=== PATIENT | female | born 2000 | race Caucasian/White ===

== ENCOUNTER → 2020-10-05 09:18 | Outpatient (CLI) | payer OTHER, SELFPAY ==
[2020-10-05 10:26] LABS: Alanine Aminotransferase 13 IU/L (<35); Albumin 4.2 g/dL (3.5-5.0); Albumin Globulin Ratio 1.7 (1.0-2.8); Alkaline Phosphatase 54 U/L (38-126); Aspartate Aminotransferase 19 IU/L (14-36); BUN Creatinine Ratio 13.8 (6-22); Bilirubin Total 0.6 mg/dL (0.2-1.3); Blood Urea Nitrogen 9 mg/dL (7-17); Calcium 9.5 mg/dL (8.4-10.2); Carbon Dioxide 26 mmol/L (22-32); Chloride 104 mmol/L (98-107); Cholesterol 118 mg/dL (140-199); Estimated Glomerular Filt Rate > 60.0 mL/min (>60); Globulin 2.5 g/dL (1.7-4.1); Glucose 84 mg/dL (70-100); HDL Cholesterol 62 mg/dL (40-60); HEMOLYSIS < 15 (0-50); LDL Cholesterol Calculated 50 mg/dL (<100); Potassium 3.6 mmol/L (3.4-5.1); Sodium 139 mmol/L (137-145); Total Protein 6.7 g/dL (6.3-8.2); Triglycerides 29 mg/dL (35-150)
[2020-10-05 10:27] LABS: Add Manual Diff / Slide Review NO; Basophils Absolute Auto 0 /uL (0-100); Basophils Percent Auto 0.4 % (0-2); Eosinophils Absolute Auto 100 /uL (0-450); Eosinophils Percent Auto 1.1 % (2-4); Hemoglobin 12.3 g/dL (12.0-16.0); Lymphocytes Absolute Auto 2900 /uL (1100-4500); Mean Corpuscular HGB Conc 35.2 % (30-36); Mean Corpuscular Hemoglobin 31.3 PG (26-34); Mean Corpuscular Volume 89.1 fL (80-100); Monocytes Absolute Auto 600 /uL (0-900); Monocytes Percent Auto 6.7 % (3-14); Neutrophils Absolute Auto 4700 /uL (1500-7000); Neutrophils Percent Auto 56.8 % (50-75); Platelet Count 278 X10^3/uL (150-400); Red Blood Cell Count 3.93 X10^6/uL (4.0-5.2); Red Cell Distribution Width 12.9 % (11.6-14.8); White Blood Cell Count 8.3 X10^3/uL (4.5-11.0)
== END ==
PROVIDERS: PCP Registered Nurse; Referring Provider Registered Nurse; Visit Provider Registered Nurse
DX: Z00.00 Encounter for general adult medical examination without abnormal findings (principal); Z83.42 Family history of familial hypercholesterolemia; Z83.49 Family history of other endocrine, nutritional and metabolic diseases
CPT/HCPCS: 36415; 80053; 80061; 85025

== ENCOUNTER → 2020-11-12 11:56 | Outpatient (CLI) | payer OTHER, SELFPAY ==
[2020-11-12 14:08] LABS: Free T4, Direct Thyroxine 1.24 ng/dL (0.78-2.19)
== END ==
PROVIDERS: PCP Registered Nurse; Referring Provider Registered Nurse; Visit Provider Registered Nurse
DX: Z83.49 Family history of other endocrine, nutritional and metabolic diseases (principal)
CPT/HCPCS: 36415; 84439; 84443

== ENCOUNTER → 2021-04-10 14:49 | Outpatient (CLI) | payer OTHER, SELFPAY ==
[2021-04-10 16:51] LABS: HCG Quantitative /Beta subunit 2142.6 mIU/mL
== END ==
PROVIDERS: PCP Registered Nurse; Referring Provider Registered Nurse; Visit Provider Registered Nurse
DX: Z34.90 Encounter for supervision of normal pregnancy, unspecified, unspecified trimester (principal)
CPT/HCPCS: 36415; 84702

== ENCOUNTER → 2021-04-12 15:04 | Outpatient (CLI) | payer OTHER, SELFPAY ==
[2021-04-12 15:58] LABS: HCG Quantitative /Beta subunit 5549.6 mIU/mL
== END ==
PROVIDERS: PCP Registered Nurse; Referring Provider Registered Nurse; Visit Provider Registered Nurse
DX: Z34.01 Encounter for supervision of normal first pregnancy, first trimester (principal)
CPT/HCPCS: 36415; 84702

== ENCOUNTER → 2021-05-10 12:21 | Outpatient (CLI) | payer OTHER, SELFPAY ==
[2021-05-10 13:22] LABS: Add Manual Diff / Slide Review NO; Basophils Absolute Auto 0 /uL (0-100); Basophils Percent Auto 0.3 % (0-2); Eosinophils Absolute Auto 100 /uL (0-450); Eosinophils Percent Auto 0.6 % (2-4); Hematocrit 34.4 % (36-46); Hemoglobin 11.8 g/dL (12.0-16.0); Lymphocytes Absolute Auto 1600 /uL (1100-4500); Mean Corpuscular HGB Conc 34.4 % (30-36); Mean Corpuscular Volume 87.2 fL (80-100); Monocytes Absolute Auto 600 /uL (0-900); Monocytes Percent Auto 4.9 % (3-14); Neutrophils Absolute Auto 9700 /uL (1500-7000); Neutrophils Percent Auto 81.2 % (50-75); Platelet Count 331 X10^3/uL (150-400); Red Blood Cell Count 3.95 X10^6/uL (4.0-5.2); Red Cell Distribution Width 13.2 % (11.6-14.8)
[2021-05-10 14:35] LABS: Hepatitis B Surface Antigen NEGATIVE s/c (NEGATIVE)
[2021-05-10 14:54] LABS: Appearance Urine UA CLEAR; Bilirubin Urine UA NEGATIVE (NEGATIVE); Color Urine UA YELLOW; Glucose Urine UA NEGATIVE (Negative); Ketones Urine UA NEGATIVE (NEGATIVE); Leukocyte Esterase Urine UA NEGATIVE (NEGATIVE); Nitrite Urine UA NEGATIVE (Negative); Occult Blood Urine UA NEGATIVE (Negative); Protein Urine UA NEGATIVE (Negative); Specific Gravity Urine UA <=1.005 (1.000-1.035); Urobilinogen Urine UA 0.2 E.U./dL (0.2)
[2021-05-10 14:58] LABS: HIV 1 & 2 Ab/Ag 4th Gen Combo NEGATIVE (NEGATIVE); Hep C Virus Ab w/Reflex Quant NEGATIVE s/c (NEGATIVE)
[2021-05-11 04:51] LABS: RPR Screen Non Reactive (Non Reactive)
[2021-05-11 09:26] LABS: Varicella IgG Antibody >4000 index (Immune >165)
== END ==
PROVIDERS: PCP Registered Nurse; Referring Provider Family Medicine; Visit Provider Family Medicine
DX: Z34.01 Encounter for supervision of normal first pregnancy, first trimester (principal)
CPT/HCPCS: 36415; 80055; 81003; 86787; 86803; 86850; 86900; 86901; 87086; 87389

== ENCOUNTER → 2021-07-15 12:35 | Outpatient (CLI) | payer OTHER, SELFPAY ==
--- NOTE | 2021-07-15 12:38 | DI.US.S_ITS ---
PROCEDURE: US OB >= 14 WEEKS FETUS INDICATIONS: anatomy scan OUTSIDE/PRIOR DATING DATA: Last menstrual period (LMP): 02/23/21. LMP-based estimated date of delivery (TREY): 12/10/21. First dating scan (date and location): Current study, 2nd trimester. Estimated date of delivery (TREY) from first dating scan: 12/11/21. The calculations are made using the clinically derived TREY of 12/10/21. TECHNIQUE: Real-time scanning was performed of the fetus, with image documentation and biometric measurements. Endovaginal scanning: Not performed COMPARISON: None. FINDINGS: General: A single living intrauterine gestation is present. Presentation: Cephalic. Placenta: Placental position is anterior , without previa. Amniotic fluid index: 8.6 cm, normal range is 5-24 cm. Single deepest vertical pocket is 3.5 cm. heart rate: 152 beats per minute. Maternal cervical canal: 4.1 cm long. Normal lower limit is 2.5 cm. biometrics: Biparietal diameter: 4.3 cm, 18 weeks, six days Head circumference: 15.9 cm, 18 weeks, five days Abdominal circumference: 12.3 cm, 18 weeks, 0 days Femur length: 2.9 cm, 19 weeks, 0 days Clinically estimated gestational age: 18 weeks, six days Composite gestational age from present scan: 18 weeks, five days Estimated weight and percentile: 242 g, 25th percentile Anatomic survey: Neuro: Ventricles are non-dilated at less than 10 mm. Cisterna magna is normal at 3-11 mm. Cerebellum is normal in size and morphology. Nuchal skin fold: Normal at less than 6 mm between 14-21 weeks gestational age. Face: Nose and lips, facial profile are normal. Spine: No evidence for spina bifida. Heart: 4-chambered heart is present, with normal ventricular outflow tracts. Diaphragm: Diaphragm is intact. Stomach: Left-sided stomach is present. Kidneys: No hydronephrosis. Normal is less than 5 mm in 2nd trimester, less than 7 mm in 3rd trimester. Cord: 3-vessel cord has orthotopic insertion. Bladder: Normal in size. Extremities: All 4 extremities identified. IMPRESSION: 1. Single living intrauterine . 2. Composite gestational age by today's measurements is consistent with clinically derived gestational age. 3. Symmetric growth and normal anatomy. 4. Closed cervix and normal amniotic fluid volume. We strive to produce accurate, complete, and clear reports of imaging services. To assist us in improving patient care, this report was composed using standard report templates and voice recognition software. Therefore, it may contain abnormal punctuation, insertions and/or omissions. Occasional wrong-word or sound-alike substitutions may occur. Though we review the report and make efforts to correct it, we do recommend that the report be read carefully in proper context to recognize any text inaccuracies. Dictated by: Galina Lantigua M.D. on 07/15/2021 at 13:47 Approved by: Galina Lantigua M.D. on 07/15/2021 at 13:53
== END ==
PROVIDERS: PCP Registered Nurse; Referring Provider Family Medicine; Visit Provider Family Medicine
DX: Z36.89 Encounter for other specified antenatal screening (principal); Z3A.18 18 weeks gestation of pregnancy
CPT/HCPCS: 76811

== ENCOUNTER → 2021-07-22 15:10 | Outpatient (CLI) | payer OTHER, SELFPAY ==
--- NOTE | 2021-07-22 15:12 | DI.ECHO.S_ITS ---
[facility]---------+ [facility] +---------+ : : [address] : : : : [phone] : : : : Phone: [phone]+ Echocardiogram Report + + :Name: CINDY MORENO Study Date: 07/22/2021 Height: 67 in : :[facility] ReadingLocation: Weight: 180 lb: : Gender: Female BSA: 1.9 m2 : :: 2000 Age: 21 yrs : :Reason For Study: FAMILY HISTORY OF CONGENITAL HEART DISEASE : :Ordering Physician: CADENCE, : :KARINA Performed By: Anabelle Richards : :Referring: KARINA VILA : + + Interpretation Summary 1) Normal left ventricular thickness, size, wall motion, and systolic function (EF 55-60%). 2) Normal right ventricular size and function. 3) No significant valvular abnormalities. 4) No prior Echo available for comparison. Procedure: A two-dimensional transthoracic echocardiogram with color flow and Doppler was performed. The study quality was technically good. There is no prior echocardiogram noted for this patient. The patient was in sinus tachycardia with heart rates between 95-115 bpm during the exam. Left Ventricle: The left ventricle is normal in size and wall thickness. The ejection fraction is estimated to be 55-60%. Left ventricular systolic function appears normal without focal wall motion abnormalities. Diastolic function could not be accurately assessed due to tachycardia. Right Ventricle: The right ventricle is normal in size and function. Atria: The left atrium is mildly dilated. Right atrial size is normal. There is no Doppler evidence for an interatrial shunt. Mitral Valve: The mitral valve is normal in structure and function. There is trace mitral regurgitation. Aortic Valve: The aortic valve is trileaflet. The aortic valve opens well. There is no aortic valve stenosis. No aortic regurgitation is present. Tricuspid Valve: The tricuspid valve is normal in structure and function. There is trace tricuspid regurgitation. Pulmonic Valve: The pulmonic valve leaflets are thin and pliable; valve motion is normal. There is no pulmonic valvular regurgitation. Great Vessels: The aortic root is normal size. The dimensions of the ascending aorta are normal. The IVC is of normal diameter and collapses greater than 50% with a sniff. This suggests a low right atrial pressure of 3 mm Hg. Pericardium/ Pleura There is no pericardial effusion. There is no pleural effusion. MMode/2D Measurements & Calculations LVIDd: 4.9 cm LVOT diam: 2.0 cm LVIDs: 3.2 cm Ao root diam: 2.7 cm FS: 34.4 % asc Aorta Diam: 2.3 cm IVSd: 0.66 cm Ao Arch Diam (Prox Trans): 2.3 cm LVPWd: 0.81 cm LV worley. diameter/BSA (cm/m^2): 2.5 LV sys. diameter/BSA (cm/m^2): 1.7 LA A2 area: 20.2 cm2 RA long axis: 4.8 cm LA A4 area: 18.8 cm2 RA area: 12.5 cm2 LA length (vol): 4.6 cm RA vol: 27.9 ml LA vol: 69.5 ml RA : 14.4 ml/m2 LA vol index: 36.0 ml/m2 IVC diam: 1.0 cm RVD1 (basal): 3.5 cm RVD2 (mid): 3.0 cm TAPSE: 2.2 cm Doppler Measurements & Calculations Ao V2 max: 176.4 cm/sec LVOT Max Hunter: 121.2 cm/sec Ao V2 mean: 111.5 cm/sec LV V1 max P.9 mmHg Ao max P.4 mmHg LV V1 VTI: 22.0 cm Ao mean P.8 mmHg CLYDE(I,D): 2.3 cm2 Ao V2 VTI: 30.2 cm CLYDE(V,D): 2.2 cm2 sev ratio: 0.73 CLYDE indexed to BSA (cm^2/m^2): 1.2 MV E max hunter: 92.3 cm/sec PA V2 max: 128.0 cm/sec MV A max hunter: 1.9 cm/sec PA V2 mean: 82.5 cm/sec MV E/A: 48.9 PA mean P.2 mmHg Med Peak E' Hunter: 13.6 cm/sec PA pr(Accel): 43.0 mmHg E/E' med: 6.8 Lat Peak E' Hunter: 16.6 cm/sec E/E' lat: 5.6 E/e' average: 6.2 MV dec time: 0.14 sec SV(LVOT): 69.3 ml Reading Physician:04:40 PM
== END ==
PROVIDERS: PCP Registered Nurse; Referring Provider Family Medicine; Visit Provider Family Medicine
DX: Z13.6 Encounter for screening for cardiovascular disorders (principal); Z82.79 Family history of other congenital malformations, deformations and chromosomal abnormalities
CPT/HCPCS: 93306

== ENCOUNTER → 2021-07-26 18:22 | Outpatient (ROUT) | payer OTHER, SELFPAY | PROVIDERS: PCP Registered Nurse; Visit Provider Family Medicine | DX: N39.0 Urinary tract infection, site not specified (principal) | CPT/HCPCS: 87086 ==

== ENCOUNTER 2021-10-09 14:35 | Outpatient (CLI) | payer OTHER, SELFPAY ==
--- NOTE | 2021-10-09 15:19 | P.TNLD_ITS ---
Visit Information Visit Information Date of evaluation: 10/09/21 Primary OB Provider: Franchesca Suero Reason for Evaluation: Yes rupture of membranes Comments/Additional reasons for admission: Pt is a 21yo at 31w1d here for concerns for LOF. Pt reports intermittently leaking fluid for the last couple days. No contractions, vaginal bleeding. She is feeling her baby move regularly. [facility] Medical History (Updated 10/09/21 @ 15:22 by Franchesca Suero MD) COVID-19 affecting in first trimester (~04/08/21) Family history of high cholesterol Family history of thyroid disease Heart palpitations (~2020) History of irregular menstrual cycles (~2011) Surgical History (Updated 05/09/21 @ 12:22 by Theresa Shrestha RN) No history of previous surgery Family History (Updated 05/09/21 @ 12:27 by Theresa Shrestha RN) Mother Hyperthyroidism Diabetes type 2, controlled Thyroid cancer Grandfather Hypertension Hyperlipidemia Father No problems noted. Grandmother No problems noted. Grandfather No problems noted. Grandmother No problems noted. Social History marital status: number of children: 0 household members: spouse lives independently: Yes caregiver/support person: No housing: house pets and animals: No education level: high school occupational status: unemployed current occupational exposures/hazards: No christina/shinto: Taoism special christina needs: No seatbelt use: always helmet use: Yes working smoke detector in home: Yes fire extinguisher in home: Yes carbon monox detector in home: No firearms in home: No do you feel safe at home: Yes Smoking Status: Never smoker second hand exposure: No alcohol intake: former (Pre-: social. ) substance use type: does not use during the past year weight has: remained stable well-balanced diet: daily or most days daily servings fruits/ve-4 caffeine: Yes (Tea sometimes. ) Type(s) of exercise: walking and running (Pre-.) frequency: 3-4 times per week Evaluation Evaluation Baseline heart rate: 150 Variability: Moderate (11-25) monitor accelerations: Present Monitor Decelerations: Absent Non-invasive Membranes Rupture Test: negative Diagnosis, Plan/Disposition Final Diagnosis (1) No leakage of amniotic fluid into vagina: Status: Acute Plan/Disposition Plan: Pt is a 21yo at 31w1d here for concerns for LOF. Amniosure negative. NST reactive. Safe for d/c home. OB Disposition: home
== END 2021-10-09 15:20 | disposition home or self-care (01) ==
LOC: LABOR 14:58 → OB 10-10 07:47
PROVIDERS: PCP Registered Nurse; Referring Provider Family Medicine; Visit Provider Family Medicine
DX: Z03.71 Encounter for suspected problem with amniotic cavity and membrane ruled out (principal); Z3A.31 31 weeks gestation of pregnancy
CPT/HCPCS: 59025; 84112; G0378; G0379

== ENCOUNTER 2022-10-02 19:18 | Emergency (ER) | payer OTHER, SELFPAY ==
[2022-10-02 19:27] VITALS: BP 132/67; PULSE 108; RESP 18; TEMP 37.5; O2SAT 100; BMI 31.3
--- NOTE | 2022-10-02 20:24 | ED_ITS ---
HPI - Skin/Abscess/Foreign Bdy General Chief complaint: Skin/Abscess/Foreign Body Stated complaint: possible mastitis Time Seen by Provider: 10/02/22 20:24 Source: patient Mode of arrival: Ambulatory Limitations: no limitations History of Present Illness HPI narrative: Patient is a 22-year-old female who presents with fever body aches and right breast pain. She reports that her 9-month-old bit her nipple 3 days ago. Last night she started having some body aches and fatigue. Today she feels okay the nipple still kind of sore no significant tenderness or sensitivity on breast. She had 1 episode of nausea no abdominal pain no cough no sore throat no painful or frequent urination no back pain. Related Data Home Medications Medication Instructions Recorded Confirmed ascorbic acid (vitamin C) 1,000 mg 500 mg PO DAILY 05/09/21 05/09/21 tablet cholecalciferol (vitamin D3) 25 25 mcg PO DAILY 05/09/21 05/09/21 mcg (1,000 unit) capsule prenat.vits,fredy,[id number] 1 tab PO DAILY 05/09/21 05/09/21 Previous Rx's Medication Instructions Recorded breast pump #1 ea 08/30/21 dicloxacillin 500 mg capsule 500 mg PO QID 7 days #28 caps 10/02/22 Allergies Allergy/AdvReac Type Severity Reaction Status Date / Time No Known Drug Allergies Allergy Verified 05/09/21 12:09 Review of Systems Review of Systems ROS Unobtainable: All systems reviewed & are unremarkable except as noted in HPI and below Patient History Medical History COVID-19 affecting in first trimester (~04/08/21) Family history of high cholesterol Family history of thyroid disease Heart palpitations (~2020) History of irregular menstrual cycles (~2011) Surgical History No history of previous surgery Family History Mother Hyperthyroidism Diabetes type 2, controlled Thyroid cancer Grandfather Hypertension Hyperlipidemia Father No problems noted. Grandmother No problems noted. Grandfather No problems noted. Grandmother No problems noted. Social History (Reviewed 10/02/22 @ 20:29 by JAMAR Villar marital status: number of children: 0 household members: spouse lives independently: Yes caregiver/support person: No housing: house pets and animals: No education level: high school occupational status: unemployed current occupational exposures/hazards: No christina/restoration: Taoist special christina needs: No seatbelt use: always helmet use: Yes working smoke detector in home: Yes fire extinguisher in home: Yes carbon monox detector in home: No firearms in home: No do you feel safe at home: Yes Smoking Status: Never smoker second hand exposure: No alcohol intake: former (Pre-: social. ) substance use type: does not use during the past year weight has: remained stable well-balanced diet: daily or most days daily servings fruits/ve-4 caffeine: Yes (Tea sometimes. ) Type(s) of exercise: walking and running (Pre-.) frequency: 3-4 times per week Smoking Status: Never smoker Substance Use Type: does not use Exam Initial Vital Signs Initial Vital Signs: Vital Signs Temperature 99.5 F 10/02/22 19:27 Pulse Rate 108 H 10/02/22 19:27 Respiratory Rate 18 10/02/22 19:27 Blood Pressure 132/67 10/02/22 19:27 Pulse Oximetry 100 10/02/22 19:27 Oxygen Delivery Method Room Air 10/02/22 19:27 GENERAL: Alert very pleasant 22-year-old female and in no acute distress. HEENT: Head atraumatic,EOMI, pupils reactive, face symmetric, moist mucous membranes CARDIOVASCULAR: Regular rate and rhythm without murmurs, rubs or gallops. RESPIRATORY: Breath sounds equal bilaterally, no wheezes rales or rhonchi. ABDOMEN: Soft, nontender. Normoactive bowel sounds all 4 quadrants. No guarding or rebound. EXTREMITIES: Normal range of motion, no clubbing or edema. Neurovascularly intact NEUROLOGICAL: Alert and oriented x4.Normal gait and speech. SKIN: Right breast has absolutely no erythema no fluctuation nipple is evaluated there is no obvious injury or neck in the skin Course Vital Signs Vital signs: Vital Signs - 8 hr 10/02/22 19:27 Temperature 99.5 F Pulse Rate 108 H Respiratory Rate 18 Blood Pressure 132/67 Pulse Oximetry 100 Oxygen Delivery Method Room Air MDM - Skin/Abscess/Foreign Bdy MDM Narrative Medical decision making narrative: 22-year-old female presents with body aches fever right breast injury and pain concern for mastitis. At this time there is absolutely no erythema no sign of injury not tender to touch no abscess. She does have a low-grade temperature here 99.5. I suspect she probably has a another sort of viral illness. She has no respiratory distress no need for chest x-ray she is not having cough. Denies any painful frequent urination. At this time we discussed writing prescription for mastitis seeing how it feels tomorrow and starting antibiotics if needed. Otherwise there might be some other illness causing temperature and symptoms. Discharge Plan Departure Patient Disposition: Home Clinical Impression: Acute viral syndrome Instructions: DI for Mastitis Activity Restrictions/Additional Instructions: *You have been diagnosed with probable viral syndrome possible early mastitis *What to do: At this time I really do not see any evidence of mastitis. This might be early viral syndrome. However I will give you some antibiotics he started having increased breast pain or redness than please start the antibiotics. Otherwise please monitor other symptoms for other illnesses. *Continue to take medications as directed *Follow up with your primary care provider in 2-3 days or call [phone] *Return to ER if you should have increasing cough shortness of breath painful frequent urination not tolerating fluids or any new, worsening or concerning symptoms Prescriptions: New dicloxacillin 500 mg capsule 500 mg PO QID 7 Days Qty: 28 0RF No Action (DME) breast pump Device See Rx Instructions .ROUTE .MEDSUPPLY Qty: 1 0RF Rx Instructions: As directed prenat.vits,fredy,[id number] Tablet 1 tab PO DAILY cholecalciferol (vitamin D3) 25 mcg (1,000 unit) capsule 25 mcg PO DAILY ascorbic acid (vitamin C) 1,000 mg tablet 500 mg PO DAILY Referrals: Cyndee Joshi PA-C [Primary Care Provider] - Stand Alone Forms: Patient Portal/API
--- NOTE | 2022-10-02 20:39 | PC.NURSE ---
evaluated per Dr Nevarez
== END 2022-10-02 20:41 | disposition home or self-care (01) ==
PROVIDERS: Emergency Provider Emergency Medicine; PCP Physician Assistant
DX: B34.9 Viral infection, unspecified (principal)
CPT/HCPCS: 99281